=== PATIENT | male | born 1985 | race Caucasian/White ===

== ENCOUNTER 2022-06-22 16:04 | Emergency (ER) | payer SELFPAY ==
[~2022-06-22] VITALS: Ht 177 cm; Wt 68.0 kg
[~2022-06-22 16:04] MED LIST: ALBU17AE23 IH; AMOX500C2 PO; PROP20TA5 PO; QTP25T PO
[2022-06-22 16:23] VITALS: BP 180/80
[2022-06-22] MEDS ORDERED: QUEtiapine 25 MG (SEROquel) TAB IMMEDIATE RELEASE PO SCH (17:30)
--- NOTE | 2022-06-22 17:40 | ED Psychosocial ---
General Chief Complaint: Substance Abuse Stated Complaint: METH ANXIETY Nursing Triage Note: ARRIVED VIA EMS ET SENT TO WAITING ROOM. PT STATES HE DID METH AT 0500 AND IS HAVING SEVERE ANXIETY. POLICE CALLED TO WAITING ROOM AND TRIAGE DUE TO PT DISRUPTIVE. Source: patient Exam Limitations: clinical condition History of Present Illness Date Seen by Provider: Jun 22, 2022 Time Seen by Provider: 16:57 Initial Comments Patient is a 37-year-old male who states that he has a history of "mental problems" and admittedly has used methamphetamine persistently over the last 12 months. He states that he has had problems with his family and girlfriend recently. He came from [place] with a friend and states in the last 24 hours he has had increasing paranoia. He thinks everyone in [place] is "out to get me". He states last night he was in a parking lot at [facility] and randomly found a large baggy of meth sitting on a curb. He states he was paranoid that somebody was watching him but then stated that he thought to himself "F-it" and took the whole baggy of meth. He states he lost time last night and does not really remember where he went or what he did. He has lost his bag of belongings which includes his daily psychiatric medications as well as antibiotics has been taking for wounds on his hands. He denies recent illness, fevers, chills, cough or congestion. No nausea vomiting or diarrhea. No other complaints of illness or injury. Patient is very agitated, pressured speech, flight of ideas, acting as if he is acutely intoxicated. He was disruptive in the waiting room and therefore brought back to room 9. After I had a long discussion with him about needs for his mental health, he is followed at [facility]. He is unsure how he is going to get back there. I talked to him about acute reasons for being admitted to a psychiatric facility, he is denying homicidal ideation, auditory or visual hallucinations. He denied suicidal ideation to me initially. I told him that I did not believe that he would meet criteria because of all of the above. He then told me that when he took the baggy of meth he was suicidal. Then he stated he wanted to walk to [facility] and "face my demons". He requested a dose of Seroquel (25mg) as well as a drink of water and a phone to call his family. He then stated he was not suicidal. When I left the room he started yelling and screaming that he was going to kill himself however when I went back in the room again he calmed down and stated that he was not going to. He was very agreeable and had a plan to talk to his family. Timing/Duration: other (today) Severity: moderate Associated Symptoms: anxiety, impaired concentration, ingestion, insomnia Allergies and Home Medications Allergies Coded Allergies: No Known Drug Allergies (Unverified , 06/13/10) Patient Home Medication List Home Medication List Reviewed: Yes Review of Systems Constitutional: no symptoms reported EENTM: no symptoms reported Respiratory: no symptoms reported Cardiovascular: no symptoms reported Gastrointestinal: no symptoms reported Genitourinary: no symptoms reported Musculoskeletal: no symptoms reported Skin: other (wounds to back of both hands) Psychiatric/Neurological: Anxiety, Emotional Problems, Other ("paranoid") All Other Systems Reviewed Negative Unless Noted: Yes Past Fmqjmau-Fuhmpp-Tuqfku Hx Patient Social History Tobacco Use?: Yes Smokeless Tobacco Frequency: Current Everyday User Substance use?: Yes Substance type: Methamphetamine, Marijuana Alcohol Use?: Yes Alcohol Frequency: Couple times a week Immunizations Up To Date Second COVID19 Vaccination Ian: UNKNOWN COVID19 Vaccine Maxillofacial Pathology: UNKNOWN Past Medical History Reproductive Disorders: No Physical Exam Vital Signs - First Documented 06/22/22 16:23 Temp 36.3 Pulse 123 Resp 16 B/P (MAP) 180/80 (113) Pulse Ox 97 O2 Delivery Room Air Capillary Refill : Less Than 3 Seconds Height, Weight, BMI Height: '" Weight: lbs. oz. kg; 21.00 BMI Method:Stated General Appearance: moderate distress (Agitated, consistent with methamphetamine intoxication) HEENT: PERRL/EOMI Neck: normal inspection Respiratory: lungs clear, normal breath sounds, no respiratory distress, no accessory muscle use Cardiovascular: regular rate, rhythm, tachycardia (120) Extremities: normal range of motion, non-tender, normal inspection, no pedal edema Neurologic/Psychiatric: alert, oriented x 3, other (Agitated, flight of ideas, "paranoia" but very focused conversation) Appearance/Memory: appropriate appearance, other (Took a shower while he was waiting to be seen in room 9) Behavior/Eye Contact: cooperative, good eye contact, increased rate of speech Thoughts/Hallucinations: no apparent hallucination; No auditory hallucinations, No delusions; flight of ideas, obsessive, paranoid Skin: normal color, warm/dry, other (superficial ulcerations to the dorsum of both hands that are not actively draining, no signs of cellulitis, no fluc tuance. approximately 4-5 in total that do not exceed 2-3cm in diameter.) Progress/Results/Core Measures Results/Orders My Orders Orders - RENETTA FERRARA MD Quetiapine Immediate Release (Seroquel I (06/22/22 17:30) Vital Signs/I&O Blood Pressure Mean: 113 Progress Progress Note : Time: 17:59 Progress Note Patient seen and examined by me, 37-year-old male with history of "mental problems" and chronic methamphetamine abuse. Evaluation today includes a phy sical exam. Based on history and physical exam differential diagnosis is acute psychosis, schizophrenic break, methamphetamine intoxication, other substance abuse. Patient was very vlax-sad-rjiki in his suicidal statements. In talking with him I felt like he was manipulating the conversation to try and get a mental health screen in order to find placement however he denied homicidal ideations to me denied suicidal ideation initially as well as auditory and visual hallucinations. His physical examination is entirely consistent with methamphetamine intoxication to which he also admitted. I do not believe that psychiatric bed placement would be appropriate for him at this time - I believe he needs drug rehab (which we do not have at this facility). I did talk with him about reaching out to his family as well as to getting back to his mental health provider at [facility]. He was agreeable to do this. Again intermittently agitated and as soon as I would leave the room would start talking about suicide but then would backtrack when I came into the room to talk to him about the best plan of care for him. No clinical or objective findings at this point to warrant laboratory studies or imaging. Patient was given his dose of Seroquel and discharged from the department. Departure Impression Primary Impression: Methamphetamine abuse Additional Impression: Anxiety about health Disposition: 01 HOME, SELF-CARE Condition: Stable Departure-Patient Inst. Decision time for Depature: 17:40 Referrals: NO,LOCAL PHYSICIAN (PCP/Family) Primary Care Physician Patient Instructions: ALCOHOL AND SUBSTANCE ABUSE, Drug Abuse and Drug Addiction (DC) Add. Discharge Instructions: Please contact your mental health provider tomorrow. They can refill your medications. Go to [facility] where you can have a place to sleep. Come back to the emergency department for any new, concerning or EMERGENT complaints. RENETTA FERRARA MD Jun 22, 2022 17:40
== END 2022-06-22 17:43 | disposition home or self-care (01) ==
LOC: EDUNIT# 16:04 → ER 16:05
DX: F15.10 Other stimulant abuse, uncomplicated (principal); F41.9 Anxiety disorder, unspecified
CPT/HCPCS: 99283